=== PATIENT | female | born 1990 | race Hispanic/Latino ===

== ENCOUNTER 2018-08-19 08:55 | Outpatient (CLI) | payer OTHER ==
--- NOTE | 2018-08-19 12:22 | ULT ---
OBSTETRIC SONOGRAM: History: Early 3rd trimester gestation. evaluation. FINDINGS: Multiple transabdominal sonographic views of the gravid uterus shows intrauterine gestation in cephal ic presentation. Cervix was partially obscured by cranium. Grade 0 placenta is posterior. No ev idence of previa. Amniotic fluid is increased with HUONG of 24.8. spine and kidneys are intact as visualized. No gross intracranial abnormalities are apparent. 3-vessel cord shows a normal insertion . Four camber heart shows motion at 149 beats/minute. Measurements are as follows: BPD 30 weeks 2 days HC 30 weeks 3 days AC 29 weeks 5 days FL 29 weeks 0 days [place] percentile: 86% IMPRESSION: 1. Single intrauterine gestation with estimated gestational age based on today's sonogram of 29 weeks 6 days. 2. Polyhydramnios. HUONG = 24.8. POS: IVAN
== END 2018-08-19 08:56 | disposition home or self-care (01) ==
LOC: BICULT 08:55
PROVIDERS: ATTEND Family Medicine
DX: O09.893 Supervision of other high risk pregnancies, third trimester (principal); O40.3XX0 Polyhydramnios, third trimester, not applicable or unspecified; Z3A.29 29 weeks gestation of pregnancy
CPT/HCPCS: 76805

== ENCOUNTER 2018-10-14 18:29 | Day surgery (SDC) | payer OTHER ==
--- NOTE | 2018-10-14 19:58 | PDOC.LDHP ---
Labor and Delivery H&P Chief complaint: decreased movement HPI: Patient of Dr Hua CALERO 36 weeks 2 days EDC 11/09/18 CC: Decreased FM HPI: 27 yo ( HX) here for decreased FM since this AM...after srrival, has felt the baby move. has appointment with Hua in 2 days. No past OB history or complications. Rare contractions, no LOF, no VB, no trauama HX Review of Systems: Complete ROS completed and as per HPI Current gestational age (weeks): 36 (2 days) Due date: 11/09/18 Dating criteria: last menstrual period Grav: 4 Para: 3 OB History Details: X3 Current complications: none Abnormal US findings: No Current medications: iron Previous surgical history: other (Fani) Social history: none - Physical Exam Vital signs reviewed and normal: yes (133/83 98.5 90 18) General: NAD Heart: RRR Lungs: CTAB Abdomen: gravid (S=D) Extremeties: no edema FHT: category 1 [place] contractions every: irritability only - Assessment Decreased FM at 36 weeks with reactive NST, know feels baby move. BM audible on monitor - Plan Plan: observation in L&D (Reassurrance given;BPs ok; cervical check prior to DC)
[2018-10-14 23:24] VITALS: BMI 44.1
== END 2018-10-14 21:40 | disposition home or self-care (01) ==
LOC: L&D/OP 18:29
PROVIDERS: ATTEND Family Medicine
DX: O36.8130 Decreased fetal movements, third trimester, not applicable or unspecified (principal); Z3A.36 36 weeks gestation of pregnancy
CPT/HCPCS: 99282

== ENCOUNTER 2018-10-19 14:10 | Inpatient (IN) | payer OTHER ==
[2018-10-19 14:43] VITALS: BMI 44.1
--- NOTE | 2018-10-19 16:09 | PDOC.FPROB ---
FMR OB H&P: HPI - History of Present Illness Chief Complaint: Decreased movement Indentification: 28 year old at 37 wks History of Present Illness: 28 year old at 37 weeks presents with decreased movement since Saturday. She states that [place] the [place] and did not feel him move. She was told by family and friends not to worry that he was probably sleeping. She had been previously told that baby can move less as she gets further along in so she wasn't too concerned at the time. She does not have any PMH or significant obstetric history. She denies vaginal bleeding, vaginal discharge, LoF, or contractions. Primary Care Physician: Hua FMR OB H&P: Current - Care : 5 Para: 3013 Gestational age: 37.0 wks FMR OB H&P: History - Past Medical History PMH: None - OB History OB History: SAB x1 x3 - [employer] History [employer] History: None - Surgical History Sx History: Denies - Social History Social History: Denies tobacco, alcohol, or drug use FMR OB H&P: Medications - Current Allergies/Adverse Reactions: Allergies Allergy/AdvReac Type Severity Reaction Status Date / Time No Known Allergies Allergy Verified 10/19/18 14:40 FMR OB H&P: ROS - Review of Systems General: denies: fever/chills, weight/appetite/sleep changes Eyes: denies: vision changes, scotomas ENT: denies: nasal congestion, rhinorrhea, sore throat Cardiovascular: denies: chest pain, edema Respiratory: denies: cough, congestion, shortness of breath Gastrointestinal: denies: abdominal pain, nausea, vomiting, diarrhea Genitourinary (Female): denies: dysuria, vaginal discharge, vaginal bleeding, contractions Musculoskeletal: denies: pain, stiffness Neurologic: denies: syncope, seizures Hematologic/Lymphatic: denies: prolonged or excessive bleeding Psychological: denies: depression, anxiety FMR OB H&P: Vital Signs - Maternal Vital signs: VSS - Heart Tones Baseline: 0 (Not able to obtain) FMR OB H&P: Physical Exam - Physical Exam General: NAD, awake, alert and oriented Deviation from normal: Tearful HEENT: MMM, grossly normal vision, grossly normal hearing Heart: RRR General: no respiratory distress Abdomen: soft, gravid, non-tender Musculoskeletal: pulses present, FROM in all four extremities Neurological: no tremor, no focal deficit Skin: no rash, capillary refill <2 seconds Lymphatic: no unusual bruising or bleeding Psychiatric: intact recent and remote memory, good judgement and insight, normal mood and affect FMR OB H&P: A/P - Problem List (1) Intrauterine Current Visit: Yes Status: Acute Code(s): [id number] - (2) Term Current Visit: Yes Status: Acute Code(s): Z34.80 - ENCOUNTER FOR SUPRVSN OF NORMAL , UNSP TRIMESTER (3) Decreased movement during Current Visit: No Status: Acute Code(s): O36.8190 - DECREASED MOVEMENTS, UNSP TRIMESTER, UNSP Disposition: 28 year old at 37 weeks presented with a two day history of decreased movement Intrauterine demise - Confirmed on bedside sono; no heartbeat identified - Discussion with patient regarding next steps; patient undecided on whether to start induction or come back for induction Term - See above Dispo: Patient deciding whether she would like to stay and be induced or return home for the time being. Discussion: Date/Time: 10/19/18 8315 This H&P was discussed with Dr. Ray who agrees with the above documentation and plan. Signature: Dee Dee Briceño, PGY-2
[2018-10-19] MEDS ORDERED: Misoprostol 100 MCG TAB ONE (17:08)
[2018-10-19] MEDS ORDERED: Ibuprofen 800 MG TAB PO PRN (18:04)
[2018-10-19] MEDS ORDERED: Lidocaine 1% (PF) 30 ML VIAL SC PRN (18:04)
[2018-10-19] MEDS ORDERED: Ondansetron PF 4 MG/2 ML Vial IVP PRN (18:04)
[2018-10-19] MEDS ORDERED: Promethazine HCl 25 MG/ML VIAL IM PRN (18:04)
--- NOTE | 2018-10-19 18:08 | PDOC.EVN ---
Event Note - Event Note Event Note: 10/19/2018 at 18:00 Patient has decided to proceed with IOL at this time. We will admit patient to L &D and start cytotec PO 100 mcg po then 50mcg q3h. Dee Dee Briceño, DO PGY-2
[2018-10-19 18:13] LABS: Hemoglobin 10.5 g/dL (12.0-16.0); Mean Corpuscular HGB CONC 32.7 g/dL (32.0-36.0); Mean Corpuscular Hemoglobin 25.1 pg (27.0-31.0); Mean Corpuscular Volume 76.9 fL (78.0-98.0); Mean Platelet Volume 10.9 fL (7.4-10.4); Platelet Count 205 thou/uL (130-400); RBC Distribution Width 13.6 % (11.5-14.5); Red Blood Cell (RBC) Count 4.18 mill/uL (4.20-5.40); White Blood Cell (WBC) Count 8.1 thou/uL (4.8-10.8)
[2018-10-19 18:56] LABS: HBSAg Index 0.24 S/CO (0-0.99); Hep B Surf Ag Non-Reactive S/CO (NonReactive); Syphilis Antibody Nonreactive (Nonreactive); Syphilis Antibody Index 0.03 S/CO (<1.00 Non-Reactive)
[2018-10-19] MEDS ORDERED: Misoprostol 100 MCG TAB PO SCH (21:00)
[2018-10-19] MEDS: Misoprostol 100 MCG TAB PO SCH (21:05)
[2018-10-20] MEDS: Butorphanol Tartrate 1 MG/ML VIAL SLOW IVP PRN ×2 (00:08→03:06)
[2018-10-20] MEDS: Misoprostol 100 MCG TAB PO SCH (00:10)
[2018-10-20] MEDS ORDERED: Lidocaine 1% (PF) 30 ML VIAL ONE (03:29)
[2018-10-20] MEDS ORDERED: NS / Oxytocin 40 units/1000ml 1,000 ML ONE (03:29)
[2018-10-20] MEDS: NS / Oxytocin 40 units/1000ml 1,000 ML IV PRN ×2 (03:40→05:25)
[2018-10-20] MEDS ORDERED: Lidocaine 2% 10 ML INJ ONE (03:41)
[2018-10-20] MEDS ORDERED: Lidocaine 1% PF 5 ML VIAL ONE (03:41)
[2018-10-20] MEDS ORDERED: Lidocaine 1.5%/Epinephrine 1:200,000 5 ML AMPUL IJ ONE (03:41)
--- NOTE | 2018-10-20 05:05 | OP ---
DATE OF PROCEDURE: 10/20/2018 PREOPERATIVE DIAGNOSES: 1. Intrauterine at 37 weeks. 2. Intrauterine demise. POSTOPERATIVE DIAGNOSES: 1. Intrauterine at 37 weeks. 2. Intrauterine demise. 3. Cord accident, tight true knot in the cord. PROCEDURE PERFORMED: Term spontaneous vaginal delivery. ANESTHESIA: None. SPECIMENS: Placenta to Pathology. FINDINGS: A term at the time of delivery with a swollen engorged cord at point of a tight true knot. COMPLICATIONS: None. DESCRIPTION OF PROCEDURE: The patient delivered a term male at 3:36 am by an uncomplicated term spontaneous vaginal delivery. Apgars were 0 and 0. Placenta delivered spontaneously. There were no lacerations. ESTIMATED BLOOD LOSS: 300 mL. DELIVERING PHYSICIAN: Dr. Ray. Mother stable in the immediate . The was taken from the room for preparation. Job ID: [id number] [facility]
[2018-10-20] MEDS ORDERED: Benzocaine/Menthol 20-0.5% 60 ML CAN TOP PRN (05:57)
[2018-10-20] MEDS ORDERED: NS / Oxytocin 40 units/1000ml 1,000 ML IV SCH (05:57)
[2018-10-20] MEDS ORDERED: Bisacodyl 10 MG SUPP PR PRN (05:57)
[2018-10-20] MEDS ORDERED: Adacel (T-DAP) 0.5 ML SYRINGE IM ONE (05:57)
[2018-10-20] MEDS ORDERED: HYDROcodone/Acetaminophen 5/325 mg Tablet PO PRN ×2 (05:57)
[2018-10-20] MEDS ORDERED: Ondansetron PF 4 MG/2 ML Vial IVP PRN (05:57)
[2018-10-20] MEDS ORDERED: Milk Of Magnesia 30 ML UDCUP PO PRN (05:57)
[2018-10-20] MEDS ORDERED: Ibuprofen 800 MG TAB PO SCH (06:00)
--- NOTE | 2018-10-20 06:27 | DIS ---
DATE OF ADMISSION: 10/19/2018 DATE OF DISCHARGE: 10/20/2018 ADMITTING DIAGNOSES: 1. Intrauterine at 37 weeks. 2. Intrauterine demise. DISCHARGE DIAGNOSES: 1. Intrauterine at 37 weeks. 2. Intrauterine demise. PROCEDURE: Term spontaneous vaginal delivery. HOSPITAL COURSE: The patient is a 28-year-old female, G5, P3, with an intrauterine at 37 weeks, who presented to Labor and Delivery after experiencing no movement for two days. On presentation, the patient was confirmed to have an IUFD by bedside ultrasound. The patient and her decided after processing the bad news to go ahead for with induction of labor at this time. Her induction went fairly quickly and the patient delivered a nonviable term at 03:35 this morning on 10/20/2018. Immediately visible, it was a tight true knot in the cord, where there was distinct swelling before the knot and none after. otherwise appeared normal and healthy. For complete details, please refer to the delivery note. The patient has expressed interest and desire to return home with the rest of her children to be with them this [place] and is otherwise stable for discharge. The patient will be observed for 6 hours and be discharged to home. PHYSICAL EXAMINATION: VITAL SIGNS: She has current vital signs of 104/63, heart rate of 102, respiratory rate of 16. GENERAL: She appears to be in no acute distress. She is alert, oriented, cooperative, and pleasant to interact with. HEENT: Head is normocephalic and atraumatic. ABDOMEN: Fundus is firm. Abdomen soft. Her lochia is much decreased. The patient will be discharged to home with ibuprofen to be taken as needed for pain. She has instructions to seek medical attention should she experience increasing pain or bleeding. She will be following up with her primary OB, Dr. Sequeira, as soon as she feels ready. She has an appointment in two days already scheduled. Job ID: [id number] MTDD
[2018-10-20] MEDS ORDERED: Ferrous Sulfate 325 MG TAB PO SCH (08:00)
[2018-10-20] MEDS ORDERED: Docusate Calcium (SURFAK) 240 MG CAP PO SCH (09:00)
[2018-10-20] MEDS ORDERED: Ibuprofen 100 MG/5 ML UDCUP PO SCH (14:00)
== END 2018-10-20 15:10 | disposition home or self-care (01) | DRG 807 ==
LOC: L&D/OP 14:10 → L&D 18:10
PROVIDERS: ADMIT Obstetrics & Gynecology; ATTEND Obstetrics & Gynecology
PROC: 10E0XZZ Delivery of Products of Conception, External Approach (ICD-10-PCS; principal; 2018-10-20)
PROC: 3E0P7VZ Introduction of Hormone into Female Reproductive, Via Natural or Artificial Opening (ICD-10-PCS; 2018-10-20)
DX: O69.2XX0 Labor and delivery complicated by other cord entanglement, with compression, not applicable or unspecified (principal); Z37.1 Single stillbirth; Z3A.37 37 weeks gestation of pregnancy; O36.8130 Decreased fetal movements, third trimester, not applicable or unspecified; O77.0 Labor and delivery complicated by meconium in amniotic fluid; O69.81X0 Labor and delivery complicated by cord around neck, without compression, not applicable or unspecified
CPT/HCPCS: 85027; 86780; 86850; 86900; 86901; 87340; 88307; 99285; J0595; J2001; J3490

== ENCOUNTER 2019-08-26 08:04 | Outpatient (CLI) | payer MEDICAID ==
--- NOTE | 2019-08-26 10:10 | ULT ---
LIMITED LEFT BREAST ULTRASOUND: Date: 08/26/19 PROVIDED CLINICAL HISTORY: Left breast pain. FINDINGS: Limited sonographic interrogation was performed of the left breast in the 4 and 5 o'clock positions i n the region of reported patient pain. The sonographic appearance of the breast parenchyma in this re gion is normal. IMPRESSION: No sonographic abnormality is evident to the region of patient pain. Negative sonographic findings s hould not preclude further evaluation of a clinically suspicious finding. The patient was referred ba aneta to her clinician. POS: OFF
== END 2019-08-26 08:05 | disposition home or self-care (01) ==
LOC: BICULT 08:04
PROVIDERS: ATTEND Family Medicine
DX: N64.4 Mastodynia (principal)

== ENCOUNTER 2021-11-23 22:02 | Emergency (ER) | payer MEDICAID ==
[2021-11-24 12:08] LABS: SARS-CoV-2 PCR by NAA Not Detected (NotDetected)
== END 2021-11-23 23:15 | disposition home or self-care (01) ==
LOC: ERS 22:02
DX: R05.9 Cough, unspecified (principal); R50.9 Fever, unspecified; Z20.822 Contact with and (suspected) exposure to COVID-19
CPT/HCPCS: 87804; 99283; U0003; U0005

== ENCOUNTER 2022-08-26 23:50 | Emergency (ER) | payer OTHER ==
[2022-08-27] MEDS ORDERED: Acetaminophen 500 MG TAB ONE (00:58)
[2022-08-27 01:01] LABS: Bilirubin Negative (Negative); Blood, Urine Negative (Negative); Clarity Clear (Clear); Glucose, Urine (Dipstick) Normal (Negative); Ketone, Urine Negative (Negative); Leukocyte Negative Leu/uL (Negative); Nitrite Negative (Negative); Protein, Urine (Dipstick) Negative (Neg-Trace); Specific Gravity, Urine 1.021 (1.002-1.036); Urobilinogen Normal mg/dL (Less than 2); pH, Urine 7.5 (5.0-9.0)
[2022-08-27 01:02] LABS: Pregnancy Test - Urine (BHCG) Negative (Negative); Pregu Control Background? CLEAR/WHITE (CLR/WHITE); Pregu Control Bar Appear? YES (CONTROL BAR); Specific Gravity 1.021 (1.002-1.036)
[2022-08-27 01:03] LABS: #Eosinphils 0.1 thou/uL (0.0-0.7); #Monocytes 0.5 thou/uL (0.11-0.59); #Neutrophils 7.5 thou/uL (1.40-6.50); %Basophils 0.3 % (0.0-1.0); %Eosinophils 1.2 % (0.0-10.0); %Lymphocytes 11.2 % (21.0-51.0); %Monocytes 5.2 % (0.0-10.0); %Neutrophils 82.1 % (42.0-75.0); Hemoglobin 13.8 g/dL (12.0-16.0); Mean Corpuscular HGB CONC 32.5 g/dL (32.0-36.0); Mean Corpuscular Volume 86.1 fl (78.0-98.0); Mean Platelet Volume 8.8 fL (7.4-10.4); Platelet Count 204 thou/uL (130-400); RBC Distribution Width 11.9 % (11.5-14.5); Red Blood Cell (RBC) Count 4.93 mill/uL (4.20-5.40); White Blood Cell (WBC) Count 9.1 thou/uL (4.8-10.8)
[2022-08-27 01:25] LABS: ALT (SGPT) 30 U/L (8-55); AST (SGOT) 31 U/L (5-34); Albumin 4.2 g/dL (3.5-5.0); Alkaline Phosphatase 58 U/L (40-110); Anion Gap 13 mmol/L (10-20); BUN (Urea Nitrogen) 10 mg/dL (7.0-18.7); Bilirubin, Total 0.4 mg/dL (0.2-1.2); Calc. Creatinine Clearance 0 mL/min (70-130); Calcium 9.1 mg/dL (7.8-10.44); Carbon Dioxide 21 mmol/L (22-29); Chloride 105 mmol/L (98-107); Estimated GFR 110; Globulin 2.8 g/dL (2.4-3.5); Glucose 96 mg/dL (70-105); Lipase 27 U/L (8-78); Potassium 4.4 mmol/L (3.5-5.1); Sodium 135 mmol/L (136-145)
[2022-08-27] MEDS ORDERED: Ondansetron PF 4 MG/2 ML Vial ONE (02:00)
[2022-08-27] MEDS ORDERED: Ketorolac Tromethamine 30 MG/ML VIAL ONE (02:00)
[2022-08-27 03:38] LABS: SARS-CoV-2 NAA Rapid Test Not Detected (NotDetected)
== END 2022-08-27 03:58 | disposition home or self-care (01) ==
LOC: ERS 23:50
DX: J11.1 Influenza due to unidentified influenza virus with other respiratory manifestations (principal); E86.0 Dehydration; R11.0 Nausea; Z20.822 Contact with and (suspected) exposure to COVID-19
CPT/HCPCS: 36415; 71045; 80053; 81003; 81025; 83690; 84484; 85025; 96374; 96375; J1885; J2405

== ENCOUNTER 2024-07-30 11:21 | Emergency (ER) | payer OTHER, SELFPAY ==
[2024-07-30 12:48] LABS: #Basophils 0.04 10x3/uL (0.0-0.2); %Basophils 0.6 % (0.0-1.0); %Eosinophils 1.7 % (0.0-10.0); %Lymphocytes 35.6 % (21.0-51.0); %Monocytes 7.3 % (0.0-10.0); %Neutrophils 54.2 % (42.0-75.0); Hematocrit 40.3 % (36.0-47.0); Hemoglobin 13.2 g/dL (12.0-16.0); Mean Corpuscular HGB CONC 32.8 g/dL (32.0-36.0); Mean Corpuscular Hemoglobin 27.7 pg (27.0-31.0); Mean Corpuscular Volume 84.5 fL (78.0-98.0); Mean Platelet Volume 10.2 fL (7.4-10.4); Platelet Count 281 10x3/uL (130-400); RBC Distribution Width 13.3 % (11.5-14.5); Red Blood Cell (RBC) Count 4.77 mill/uL (4.20-5.40)
[2024-07-30 12:58] LABS: BHCG - Serum Negative (NEGATIVE); Pregs Control Background? CLEAR/WHITE (CLR/WHITE); Pregs Control Bar Appear? YES (CONTROL BAR)
[2024-07-30 13:07] LABS: ALT (SGPT) 26 U/L (8-55); AST (SGOT) 19 U/L (5-34); Albumin 3.7 g/dL (3.5-5.0); Alkaline Phosphatase 51 U/L (40-110); Anion Gap 11 mmol/L (10-20); BUN (Urea Nitrogen) 11 mg/dL (7.0-18.7); Bilirubin, Total 0.3 mg/dL (0.2-1.2); Calc. Creatinine Clearance 0 mL/min (70-130); Carbon Dioxide 24 mmol/L (22-29); Chloride 106 mmol/L (98-107); Estimated GFR 118; Globulin 3.4 g/dL (2.4-3.5); Glucose 88 mg/dL (70-105); Lipase 30 U/L (8-78); Potassium 4.3 mmol/L (3.5-5.1); Protein, Total 7.1 g/dL (6.0-8.3); Sodium 137 mmol/L (136-145)
[2024-07-30 13:51] LABS: Bacteria/HPF 2+ HPF (None Seen); Bilirubin Negative (Negative); Blood, Urine Negative (Negative); CAUTI Indications for Culture Pregnancy; Clarity Clear (Clear); Glucose, Urine (Dipstick) Normal (Negative); Ketone, Urine Negative (Negative); Leukocyte 25 Leu/uL (Negative); Nitrite Negative (Negative); Protein, Urine (Dipstick) Negative (Neg-Trace); RBC/HPF 0-3 HPF (0-3); Specific Gravity, Urine 1.003 (1.002-1.036); Urobilinogen Normal mg/dL (Less than 2); pH, Urine 6.5 (5.0-9.0)
[2024-07-30 13:56] LABS: Urine Culture Reflex Yes Yes
== END 2024-07-30 13:25 | disposition home or self-care (01) ==
LOC: ERS 11:21
DX: R10.11 Right upper quadrant pain (principal); R11.2 Nausea with vomiting, unspecified
CPT/HCPCS: 36415; 80053; 81001; 83690; 84703; 85025; 87086; 99283